=== PATIENT | female | born 1960 | race African-American/Black ===

== ENCOUNTER 2023-04-22 12:28 | Emergency (ER) | payer OTHER ==
[~2023-04-22] VITALS: Ht 167.6 cm; Wt 92.5 kg
[2023-04-22] MEDS ORDERED: TOPROL XL25 M1 PO (13:05)
[2023-04-22] MEDS ORDERED: CHLORTHALIDONE25 MG PO (13:06)
[2023-04-22] MEDS ORDERED: CHILDREN'S ASPI81 MG PO (13:07)
[2023-04-22] MEDS ORDERED: BIDIL TABLET1 EACH PO (13:07)
[2023-04-22] MEDS ORDERED: AMLODIPINE-OLM1 EAC2 PO (13:07)
== END 2023-04-22 14:55 | disposition home or self-care (01) ==
LOC: ER 12:28
DX: T70.0XXA Otitic barotrauma, initial encounter (principal)